=== PATIENT | female | born 1995 | race Hispanic/Latino ===

== ENCOUNTER 2024-04-18 07:26 | Day surgery (SDC) | payer OTHER, MEDICAID ==
[~2024-04-18] VITALS: Ht 170.2 cm; Wt 88.5 kg
[2024-04-18] VITALS (16 sets, daily range): BP systolic 98–122; BP diastolic 41–81; PULSE 56–65; RESP 14–17
[~2024-04-18 07:26] MED LIST: PANT40TA54 PO; PIOGLITAZONE PO
[2024-04-18] MEDS: 0.9%NACL 1000ML 1,000 ML IV ONE (07:50)
[2024-04-18] MEDS ORDERED: PROPOFOL 10 MG/ML 20ML VIAL IV ONE ×2 (08:19→08:32)
== END 2024-04-18 10:10 | disposition home or self-care (01) ==
LOC: DAH 07:26
PROVIDERS: ATTEND Internal Medicine Gastroenterology
DX: R13.10 Dysphagia, unspecified (principal); K22.89 Other specified disease of esophagus; K22.2 Esophageal obstruction; K21.00 Gastro-esophageal reflux disease with esophagitis, without bleeding; K44.9 Diaphragmatic hernia without obstruction or gangrene; Z83.3 Family history of diabetes mellitus
CPT/HCPCS: 43249; 81025; J7030 ×2; J2704 ×2; A4620; A4215; A4223; A7002; A4222; A4221; A4663; A4606; C1726; J3490

== ENCOUNTER → 2024-05-31 | Outpatient (CLI) | payer OTHER, MEDICAID | END | disposition home or self-care (01) | LOC: RAH 11:19 | PROVIDERS: ATTEND Internal Medicine Gastroenterology | DX: R93.3 Abnormal findings on diagnostic imaging of other parts of digestive tract (principal) | CPT/HCPCS: 78264; A9541 ==